=== PATIENT | male | born 2000 | race Caucasian/White ===

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

== ENCOUNTER 2022-09-05 10:46 | Emergency (ER) | payer OTHER ==
[2022-09-05] MEDS ORDERED: KETOROLAC 15 MG/ML 1 ML VIAL IVP STA (11:21)
[2022-09-05] MEDS ORDERED: MORPHINE SULFATE 4 MG/ML SYRINGE IVP STA (11:21)
[2022-09-05] MEDS ORDERED: DIPH,PERTUS(ACELL)TETVAC-LF 0.5 ML VIAL IM ONE (11:24)
--- NOTE | 2022-09-05 11:27 | ED ---
General Adult HPI - General Chief complaint: Extremity Injury, Upper Stated complaint: Left hand injury Time Seen by Provider: 09/05/22 11:15 Source: patient, RN notes reviewed Mode of arrival: ambulatory - History of Present Illness Initial comments: 82-year-old male presents the emergency department the chief complaint of foreign body in left hand. Patient reports that he was working with a nail gun when it lost control and chart and his left hand. He denies any numbness, tingling, weakness. He reports that it is painful. Taken anything prior to arrival. He is unsure of his last tetanus vaccine. - Related Data Previous Rx's Medication Instructions Recorded Amoxic-Pot Clav 875-125Mg 1 tab PO Q12HR #20 tab 09/05/22 [Augmentin 875-125] Cephalexin [Keflex] 500 mg PO Q6HR #40 cap 09/05/22 Ibuprofen [Motrin] 800 mg PO Q6HR #30 tab 09/05/22 Allergies Allergy/AdvReac Type Severity Reaction Status Date / Time No Known Allergies Allergy Verified 09/05/22 10:50 Review of Systems ROS Statement: Those systems with pertinent positive or pertinent negative responses have been documented in the HPI. ROS Other: All systems not noted in ROS Statement are negative. Past Medical History Past Medical History: No Reported History History of Any Multi-Drug Resistant Organisms: None Reported Past Surgical History: No Surgical Hx Reported Past Psychological History: No Psychological Hx Reported Smoking Status: Never smoker Past Alcohol Use History: Occasional Past Drug Use History: None Reported General Exam - General Exam Comments Initial Comments: General: Alert, in no acute distress Head: atraumatic normocephalic. Eyes PERRL, EOMI intact, mucous membranes moist Respiratory: Lungs clear to auscultation bilaterally Cardiovascular: Rate regular rate and rhythm Abdominal: Soft without guarding or rebound Extremities: Normal inspection with full range of motion and normal capillary refill, left hand with nail through palmar surface. Limited ROM of 4th digit. 2+ radial pulses, distal NVI maintains intact Neuroogic: alert and oriented 3, CN II-XII intact, able to ambulate with steady gait Skin: warm dry and intact with normal color Course Vital Signs 09/05/22 09/05/22 09/05/22 10:47 11:08 12:35 Temperature 97.4 F L 97.9 F Pulse Rate 77 69 Respiratory 20 16 Rate Blood Pressure 151/79 132/81 O2 Sat by Pulse 100 98 Oximetry - Reevaluation(s) Reevaluation #1: 09/05/22 12:45 Foreign body successfully removed from left hand. Digits with full range of motion, 5 over 5 strength, 2+ pulses bilaterally, distal neurovascularly maintains intact Medical Decision Making - Medical Decision Making Was pt. sent in by a medical professional or institution (ALLEN Nixon, MOVEMENT EDUCATION SPECIALIST, urgent care, hospital, or skilled nursing...) When possible be specific @ -[No] Did you speak to anyone other than the patient for history (EMS, parent, family, police, friend...)? What history was obtained from this source @ -[No] Did you review nursing and triage notes (agree or disagree)? Why? @ -[I reviewed and agree with nursing and triage notes] Were old charts reviewed (outside hosp., previous admission, EMS record, old EKG, old radiological studies, urgent care reports/EKG's, skilled nursing records)? Report findings @ -[No old charts were reviewed] Differential Diagnosis (chest pain, altered mental status, abdominal pain women, abdominal pain men, vaginal bleeding, weakness, fever, dyspnea, syncope, headache, dizziness, GI bleed, back pain, seizure, CVA, palpatations, mental health, musculoskeletal)? @ -[not applicable] EKG interpreted by me (3pts min.). @ -[As above] X-rays interpreted by me (1pt min.). @ -X-ray of left hand reveals nail that abuts to the metacarpal no evidence of fracture CT interpreted by me (1pt min.). @ -[None done] U/S interpreted by me (1pt. min.). @ -[None done] What testing was considered but not performed or refused? (CT, X-rays, U/S, labs)? Why? @ -[None] What meds were considered but not given or refused? Why? @ -[None] Did you discuss the management of the patient with other professionals (professionals i.e. ALLEN Nixon, MOVEMENT EDUCATION SPECIALIST, lab, RT, psych nurse, social worker masters, senior maintenance technician, teacher, credit compliance officer, embedded case manager)? Give summary @ -[No] Was smoking cessation discussed for >3mins.? @ -[No] Was critical care preformed (if so, how long)? @ -[No] Were there social determinants of health that impacted care today? How? (Homelessness, low income, unemployed, alcoholism, drug addiction, transportation, low edu. Level, literacy, decrease access to med. care, long-term, rehab)? @ -[No] Was there de-escalation of care discussed even if they declined (Discuss DNR or withdrawal of care, Hospice)? DNR status @ -[No] What co-morbidities impacted this encounter? (DM, HTN, Smoking, COPD, CAD, Cancer, CVA, ARF, Chemo, Hep., AIDS, mental health diagnosis, sleep apnea, morbid obesity)? @ -[None] Was patient admitted / discharged? Hospital course, mention meds given and route, prescriptions, significant lab abnormalities, going to OR and other pertinent info. @ -Discharged. This is a 22-year-old male who presents to the emergency department with foreign body in hand. Patient had a thorough history and physical exam performed. Physical exam reveals a nail in left palm. Patient had the nail completely removed for which she tolerated well. He was placed on antibiotics. Motrin For pain. Encouraged close follow-up in 1-2 days. Patient will be discharged in stable condition with return precautions discussed. Case discussed with YEISON Arevalo who agrees with Plan of care. Undiagnosed new problem with uncertain prognosis? @ -[No] Drug Therapy requiring intensive monitoring for toxicity (Heparin, Nitro, Insulin, Cardizem)? @ -[No] Were any procedures done? @ -[No] Diagnosis/symptom? @ -Foreign body in left hand Acute, or Chronic, or Acute on Chronic? @ -Acute Uncomplicated (without systemic symptoms) or Complicated (systemic symptoms)? @ -Uncompicated Side effects of treatment? @ -[No] Exacerbation, Progression, or Severe Exacerbation? @ -[No] Poses a threat to life or bodily function? How? (Chest pain, [place], [place], pneumonia, PE, COPD, DKA, ARF, appy, cholecystitis, CVA, Diverticulitis, Homicidal, Suicidal, threat to staff... and all critical care pts) @ -Low likelihood Disposition Clinical Impression: Nail wound of palm of hand Disposition: HOME SELF-CARE Condition: Stable Instructions (If sedation given, give patient instructions): Puncture Wound (ED) Additional Instructions: Please return to the nearest emergency department if symptoms worsen or persist Prescriptions: Amoxic-Pot Clav 875-125Mg [Augmentin 875-125] 1 tab PO Q12HR #20 tab Cephalexin [Keflex] 500 mg PO Q6HR #40 cap Ibuprofen [Motrin] 800 mg PO Q6HR #30 tab Is patient prescribed a controlled substance at d/c from ED?: No Referrals: Vanessa Harris MD [Primary Care Provider] - 1-2 days Time of Disposition: 12:26
[2022-09-05] MEDS ORDERED: ONDANSETRON 4 MG/2 ML VIAL IVP STA (11:38)
[2022-09-05] MEDS: ONDANSETRON 4 MG/2 ML VIAL IM STA ×2 (11:41→11:42)
--- NOTE | 2022-09-05 11:52 | XR ---
EXAMINATION TYPE: XR hand complete LT DATE OF EXAM: 09/05/2022 11:46 AM INDICATION: Patient age:Male; 22 years old; Reason for study: FB in L hand; PHH. COMPARISON: None TECHNIQUE: Frontal, lateral and oblique views of the left hand were obtained. FINDINGS: Normal alignment of the visualized joints. No acute osseous pathology is identified. No e vidence of soft tissue swelling. There is a single intact nail entering the soft tissues of the palm with distal tip in the region of the fourth metacarpal soft tissues just abutting the fourth metacarp al. IMPRESSION: 1. No acute fracture or dislocation. 2. A single nail is identified entering the soft tissues of the palm with distal tip abutting the fo urth metacarpal.
[2022-09-05] MEDS ORDERED: LIDOCAINE 1% INJ 10MG/ML (30 ML VIAL-PF) SQ ONE (11:59)
[2022-09-05 12:37] VITALS: BP 132/81; PULSE 69; RESP 16; TEMP 97.9
== END 2022-09-05 12:48 | disposition home or self-care (01) ==
LOC: EC 10:46
DX: S61.402A Unspecified open wound of left hand, initial encounter (principal); Z23 Encounter for immunization; W29.4XXA Contact with nail gun, initial encounter
CPT/HCPCS: 73130; 90715; 99283; 90471; 96374; 96375 ×2; J2270; J2405; J2001; J1885

== ENCOUNTER → 2024-06-20 | Outpatient (CLI) | payer OTHER ==
[2024-06-20 17:28] LABS: Alternaria alternata IgE <0.10 kU/L; Aspergillus fumagatus IgE <0.10 kU/L; Birch IgE <0.10 kU/L; Cladosporian herbarum IgE <0.10 kU/L; Cockroach IgE <0.10 kU/L; Dog Dander IgE 9.61 kU/L; Elm IgE <0.10 kU/L; Maple (Box Elder) IgE <0.10 kU/L; Oak IgE <0.10 kU/L; Ragweed,Common IgE <0.10 kU/L; Red Top (Bentgrass) IgE <0.10 kU/L
[2024-06-21 11:34] LABS: Horse Dander IgE Class CLASS 3
== END | disposition home or self-care (01) ==
LOC: LABWHC1 08:04
PROVIDERS: ATTEND Otolaryngology
DX: J30.89 Other allergic rhinitis (principal)
CPT/HCPCS: 36415; 82785; 86003